=== PATIENT | female | born 1990 | race Two or more races ===

== ENCOUNTER → 2023-10-15 14:17 | Outpatient (REF) | payer BC, SELFPAY | LOC: PNTC 14:17 | PROVIDERS: ATTENDING PHYSICIAN Obstetrics & Gynecology | DX: Z36.0 Encounter for antenatal screening for chromosomal anomalies (principal); Z36.82 Encounter for antenatal screening for nuchal translucency | CPT/HCPCS: 76801; 76813 ==

== ENCOUNTER → 2023-10-24 13:40 | Outpatient (REF) | payer BC, SELFPAY | LOC: DHCBC MAIN 13:40 | PROVIDERS: ATTENDING PHYSICIAN Internal Medicine Cardiovascular Disease | DX: R42 Dizziness and giddiness (principal); R00.2 Palpitations | CPT/HCPCS: 93306 ==

== ENCOUNTER → 2024-04-16 13:17 | Outpatient (REF) | payer BC, SELFPAY | LOC: PNTC 13:17 | PROVIDERS: ATTENDING PHYSICIAN Obstetrics & Gynecology | DX: O36.8130 Decreased fetal movements, third trimester, not applicable or unspecified (principal) | CPT/HCPCS: 59025; 76815 ==

== ENCOUNTER 2024-04-18 09:16 | Inpatient (IN) | payer BC, SELFPAY ==
[2024-04-18 09:20] VITALS: BP 130/83; BMI 35.7
[2024-04-18] MEDS: LR 1000 IV (09:30)
[2024-04-18 10:06] LABS: % Basophils 0.3 % (0-2); % Eosinophils 0.8 % (0-6); % Immature Granulocytes 0.9 % (0-0.5); % Monocytes 5.4 % (1.7-9.3); % Neutrophils 75.6 % (42.2-75.2); Absolute Eosinophils 0.1 10^3/uL (0-0.7); Absolute Immature Granulocytes 0.1 10^3/uL (0-0.05); Absolute Monocytes 0.6 10^3/uL (0.1-0.6); Absolute Neutrophils 8.8 10^3/uL (1.4-6.5); Hematocrit 33.4 % (37.0-47.0); Hemoglobin 11.6 g/dL (12.0-16.0); Mean Corp Hgb Conc. 34.7 g/dL (33.0-37.0); Mean Corpuscular Hgb 30.1 pg (27.0-31.0); Mean Corpuscular Volume 86.8 fL (81.0-99.0); Mean Platelet Volume 10.7 fL (7.4-10.4); Nucleated Red Blood Cells % 0 %; Platelet Count 207 10^3/uL (130-400); Red Blood Cell Count 3.85 10^6/uL (4.20-5.40); Red Cell Dist. Width 14.2 % (11.5-14.5); White Blood Cell Count 11.7 10^3/uL (4.8-10.8)
[2024-04-18] MEDS: PENICILLIN 110 UNITS IV (10:07)
[2024-04-18] MEDS: SUBLIMAZE 100 MCG EPIDURAL (10:08)
[2024-04-18] MEDS: FENTANYL/BUPIVACAINE 100 EPIDURAL (10:08)
[2024-04-18] MEDS: PENICILLIN 55 UNITS IV (14:28)
[2024-04-18] MEDS: TUMS CHEWABLE TABLET 400 MG PO (16:04)
[2024-04-18] MEDS: ZOFRAN 4 MG IV (17:36)
[2024-04-18] MEDS: SINGULAIR 10 MG PO (19:22)
[2024-04-19] MEDS: MOTRIN 600 MG PO ×4 (01:05→21:19)
[2024-04-19] MEDS: TYLENOL 650 MG PO ×4 (01:05→21:20)
[2024-04-19] MEDS: ZOLOFT 100 MG PO ×2 (02:49→22:00)
[2024-04-19 04:52] LABS: Hematocrit 29.8 % (37.0-47.0); Hemoglobin 10.1 g/dL (12.0-16.0)
[2024-04-19] MEDS: PRENATAL PLUS 1 TABLET PO (07:52)
[2024-04-19] MEDS: SINGULAIR 10 MG PO (18:27)
[2024-04-20] MEDS: MOTRIN 600 MG PO (06:22)
[2024-04-20] MEDS: TYLENOL 650 MG PO (06:22)
[2024-04-20] MEDS: PRENATAL PLUS 1 TABLET PO (07:40)
[2024-04-22 11:25] LABS: Syphilis/T. pallidum Ab Reflex Negative (Negative)
== END 2024-04-20 11:45 | disposition home or self-care (01) | DRG 807 ==
LOC: LDRP 09:16
PROVIDERS: Student in an Organized Health Care Education/Training Program; ADMITTING PHYSICIAN Obstetrics & Gynecology
PROC: 10E0XZZ Delivery of Products of Conception, External Approach (ICD-10-PCS; 2024-04-18)
PROC: 0KQM0ZZ Repair Perineum Muscle, Open Approach (ICD-10-PCS; 2024-04-18)
PROC: 10907ZC Drainage of Amniotic Fluid, Therapeutic from Products of Conception, Via Natural or Artificial Opening (ICD-10-PCS; 2024-04-18)
DX: O48.0 Post-term pregnancy (principal); Z37.0 Single live birth; Z3A.40 40 weeks gestation of pregnancy; O99.824 Streptococcus B carrier state complicating childbirth; O77.0 Labor and delivery complicated by meconium in amniotic fluid; O69.81X0 Labor and delivery complicated by cord around neck, without compression, not applicable or unspecified; O70.1 Second degree perineal laceration during delivery
CPT/HCPCS: 88307; 85014; 85018; 85025; 86780; 86850; 86900; 86901